=== PATIENT | female | born 2000 ===

== ENCOUNTER 2022-11-25 10:18 | Emergency (ER) | payer OTHER, SELFPAY ==
--- NOTE | ~2022-11-25 | US_ITS ---
EXAMINATION: US ABDOMEN LIMITED CLINICAL INFORMATION: Right upper quadrant pain. Evaluate for acute cholecystitis.. COMPARISON: None available. TECHNIQUE: Real-time imaging of the right upper quadrant abdominal viscera. FINDINGS: PANCREAS: Most of the pancreas obscured by overlying gas. The pancreatic duct is mildly dilated measuring 0.6 cm. GALLBLADDER: There are echogenic gallstones without wall thickening. No pericholecystic fluid collection. No tenderness with compression. COMMON BILE DUCT: Normal in caliber measuring 0.7 cm in diameter. FREE FLUID: None. US/US abdomen limited IMPRESSION: 1. Cholelithiasis without wall thickening or tenderness in right upper quadrant. 2. Mild dilatation of pancreatic duct measuring 0.6 cm.
--- NOTE | ~2022-11-25 | CT_ITS ---
EXAMINATION: CT ABDOMEN AND PELVIS WITH CONTRAST CLINICAL INFORMATION: Right lower quadrant pain. COMPARISON: None available. TECHNIQUE: Multidetector volumetric images were obtained from the superior aspect of the liver through the pubic symphysis following administration 85 mL of Omnipaque 350 intravenous contrast. Sagittal and coronal reformatted images were obtained on the technologist's workstation. Oral contrast: No This CT examination was performed using dose optimization techniques as appropriate, variously including the following: *Automated exposure control *Adjustment of mA and/or kV according to patient size (this includes techniques or standardized protocols for targeted exams where dose is matched to indication/reason for exam; i.e. extremities or head) *Use of iterative reconstruction technique DLP: 746 mGy-cm FINDINGS: LUNG BASES: The visualized lung bases are unremarkable. LIVER, GALLBLADDER, AND BILIARY TREE: No hepatic abnormality. The gallbladder shows questionable minimal dependent sludge. There is mild biliary ductal dilatation. The common bile duct measures up to 0.6 cm (image 30, series 5). Tapering at the level of the pancreatic head is seen without definitive intraluminal abnormality. PANCREAS: Unremarkable. SPLEEN: Unremarkable. ADRENAL GLANDS: Unremarkable. KIDNEYS AND URETERS: The kidneys are normal in size, shape, and attenuation. No hydronephrosis, hydroureter, or calculi seen. No perinephric stranding. BLADDER: Unremarkable. GASTROINTESTINAL TRACT: The stomach, small bowel and appendix are unremarkable. The colon and rectum are unremarkable. ABDOMINAL WALL: No significant hernia is appreciated. LYMPH NODES: No lymphadenopathy. VASCULAR: Unremarkable. PELVIC VISCERA: Mild free fluid without significant uterine or adnexal abnormality. OSSEOUS STRUCTURES: Unremarkable. CT/CT abdomen pelvis w IV con IMPRESSION: 1. Mild biliary ductal dilatation without definitive obstructing abnormality in the common bile duct. Questionable mild sludge in the gallbladder without evidence for acute cholecystitis. Right upper quadrant ultrasound is recommended for additional evaluation.
[2022-11-25 10:22] VITALS: BP 118/52; PULSE 63; RESP 18; TEMP 36.4; O2SAT 100; BMI 36.3
--- NOTE | 2022-11-25 10:34 | ED.ABDPAIN ---
HPI - Abdominal Pain General Chief Complaint: Abdominal Pain Stated Complaint: Pain From Gallstones Time Seen by Provider: 11/25/22 10:34 Source: patient Mode of arrival: ambulatory Limitations: no limitations History of Present Illness HPI narrative: 22-year-old female who presents emergency department for evaluation of right-sided abdominal pain. The patient states that after her on 05/07/2022 she developed abdominal pain was told that she has gallstones. She states that since that time she gets frequent ?gallstone pain ?every 1-2 weeks. She states that yesterday she ate steak and potatoes at around 17:00 hours for dinner. At 04:00 hours she woke up with right-sided abdominal pain. She states that was gradual in onset but has become severe. She states that the pain is a grasping like sensation and she points to her right upper quadrant when asked to localize the pain. The pain is 10/10. She had associated nausea and 2 episodes of vomiting. She states she had multiple soft stools which were dark but no blood in the stools. She had urinary frequency but no dysuria. The patient states that she was evaluated at [facility] in [facility] and is scheduled to have her gallbladder removed in 2 weeks. Patient states she went to [facility] and was evaluated by the ED triage, she had blood work but she states the wait was too long so she decided to come to this ED for evaluation since she was having increased pain and she was not medicated. Related Data Previous Rx's Medication Instructions Recorded morphine 15 mg immediate release 15 mg PO Q4-6H PRN pain #14 tabs 11/25/22 tablet ondansetron 4 mg disintegrating 4 mg PO Q6-8H PRN nausea and 11/25/22 tablet vomiting #14 tabs Allergies Allergy/AdvReac Type Severity Reaction Status Date / Time No Known Allergies Allergy Verified 11/25/22 10:25 Review of Systems Review of Systems Yes all other systems are reviewed and are negative [facility] Past Medical History [facility] Narrative: Past medical history: None. Past surgical history: None. Social history: She denies tobacco, alcohol and drug use. Social History Social History Alcohol intake: never Smoked in Last 30 Days: No Use of substances other than those prescribed or required for medical reasons: No Advance Directives: No Advance Directives Information Provided: No Patient : No Physical Exam ED Vital Signs: Vital Signs - 24 hr 11/25/22 10:22 11/25/22 11:06 11/25/22 13:35 Temperature 97.5 F 98.4 F Pulse Rate 63 56 67 Respiratory Rate 18 16 18 Blood Pressure 118/52 L 121/73 124/74 Pulse Oximetry 100 99 100 Oxygen Delivery Method Room Air Room Air Room Air BMI result Body Mass Index 36.3 Const Other: Awake, alert, female patient, she appears to be in distress secondary to her pain, she is otherwise able to answer questions without any difficulty. HENTX Head: Yes normal to inspection, Yes normocephalic and Yes atraumatic Ears: external ears normal General nose exam: Normal external nose present Face and sinus: Yes normal facial exam Mouth: Normal oral and palatal mucosa present Throat: Yes posterior oropharynx normal Eyes General: appearance normal, both eyes and all related structures Pupils: Equal, round and reactive pupils present Neck Neck: Yes normal visual inspection, Yes no lymphadenopathy, Yes trachea midline and Yes supple Chest Chest palpation & inspection: normal inspection of the chest and normal palpation of entire chest wall Resp Effort & Inspection: normal respiratory effort and able to speak in complete sentences Auscultation: clear to auscultation bilaterally Cardio Rate: regular rate Rhythm: regular rhythm Heart sounds: S1 normal heart sound present, S2 normal heart sound present and no murmurs GI Inspection: Yes normal to inspection Palpation (GI): Soft to palpation, Tenderness to palpation present (GI) in the RLQ (Moderate) and in the RUQ (Moderate to severe) and no guarding Auscultation: normal bowel sounds General: Yes no CVA tenderness Back/Spine/Pelvis Back: no CVA tenderness Skin General skin exam: no rashes or lesions noted Neuro Cranial nerves: Yes CN's II-XII intact bilaterally and Yes Equal, round and reactive pupils present Cognition (Neuro): normal cognition Motor exam (neuro): 5/5 motor strength present throughout Extrem General: Yes normal to inspection Psych Appearance: grossly normal Speech and movement: Normal speech and movement present Affect: normal affect Attitude: cooperative Medical Decision Making Medical Decision Making MDM Narrative: 22-year-old female who presents emergency department for evaluation of right-sided abdominal pain which started gradually at 04:00 hours, got progressively worse and is now 10/10 and. She describes the pain is a grabbing sensation points to her right upper quadrant. Patient has known gallstones and states she has elective surgery 2 weeks from now at [facility] to have her gallbladder removed. On presentation, the patient does appear to be uncomfortable secondary to her pain. Vital signs were normal. Examination revealed moderate to severe right upper quadrant tenderness and moderate right lower quadrant tenderness. I ordered a laboratory evaluation to include CBC, CMP, quantitative beta-hCG, lactic acid, lipase, PT/INR, PTT and urinalysis. Given both her right upper and right lower quadrant tenderness, I ordered a CT scan of the abdomen pelvis with IV contrast to help delineate the cause for pain. Patient was ordered to get normal saline x1 L. her pain and nausea was treated with Toradol 15 mg IV and Zofran 4 mg IV. 1253: My interpretation patient's laboratory evaluation is as follows: CBC was normal. CMP was normal. Lipase was not elevated. CT scan of the abdomen pelvis with IV contrast did not reveal any inflammatory changes or gallbladder wall thickening but the patient does have gallbladder sludge and mild biliary ductal dilatation. Patient initially got improvement of her pain with the Toradol but the pain is not returned. Patient still has significant right upper quadrant tenderness. I ordered morphine 4 mg IV and Zofran 4 mg IV. I will obtain a right upper quadrant ultrasound to further evaluate the patient for possible cholecystitis. 1438: The patient is feeling better after receiving IV morphine. Patient still has tenderness with palpation of her right upper quadrant. Ultrasound did reveal cholelithiasis but no evidence for cholecystitis. Patient's pain is consistent with biliary colic secondary to gallstones I did discuss this with her. The patient has a surgery 2 weeks and I told her she should not take aspirin or ibuprofen or other anti-inflammatory medications. She was advised to take Tylenol for pain and for pain not relieved by Tylenol she was prescribed morphine. She is also prescribe Zofran for her nausea. She was advised to stay on a bland diet and to follow-up with her surgeon to discuss moving up her surgery. Differential Diagnosis Differential diagnosis includes was not limited to acute cholecystitis, biliary colic, pancreatitis, appendicitis, diverticulitis, Admission/Observation Consideration of admission/observation: Escalation of care including admission/observation considered Lab Data [facility] Lab Attestation statement: I reviewed the patient's lab results. See [facility] 11/25/22 11:02 11/25/22 11:02 Labs: Lab Results 11/25/22 11/25/22 11/25/22 Range/Units 11:02 11:02 11:02 WBC 9.1 (4.8-10.8) X10*3/uL RBC 4.42 (4.20-5.50) X10*6/uL Hgb 12.4 (12.0-16.0) g/dl Hct 38.5 (37.0-47.0) % MCV 87.1 (80.0-98.0) fL MCH 28.1 (27.0-33.0) pg MCHC 32.2 (31.0-35.0) g/dl RDW 13.8 (11.0-16.0) % Plt Count 381 (160-400) X10*3/uL MPV 9.3 L (9.4-12.3) fL Immature Gran % (Auto) 0.2 (0.0-0.4) % Neut % (Auto) 74.4 H (45-73) % Lymph % (Auto) 19.6 L (20-40) % Garza % (Auto) 5.3 (2-11) % Eos % (Auto) 0.3 (0-4) % Baso % (Auto) 0.2 (0-2) % Lymph # (Auto) 1.8 (1.2-4.9) X10*3/uL Garza # (Auto) 0.5 (0.1-1.2) X10*3/uL Eos # (Auto) 0.0 (0.0-0.4) X10*3/uL Baso # (Auto) 0.0 (0.0-0.2) X10*3/uL Abs Immat Gran (auto) 0.02 (0.00-0.03) X10*3/uL Absolute Neuts (auto) 6.7 (2.0-8.3) x10*3/uL Absolute Nucleated RBC 0.000 (0.0-0.012) X10*3/uL Nucleated RBC % (auto) 0.0 (0.0-0.2) /100WBC PT 11.0 (10.0-13.1) SEC INR 1.0 (0.9-1.1) APTT 29.2 (26.0-36.4) SEC Sodium 140 (135-145) mmol/L Potassium 3.9 (3.3-5.1) mmol/L Chloride 108 (96-108) mmol/L Carbon Dioxide 22 (22-29) mmol/L Anion Gap 14 (12-20) BUN 7 L (9-16) mg/dL Creatinine 0.77 (0.5-1.4) mg/dL Estim Creat Clear Calc 135.7 Estimated GFR > 60 Random Glucose 101 (60-115) mg/dL Lactic Acid (0.5-2.0) mmol/L Calcium 9.1 (8.4-10.2) mg/dL Total Bilirubin 0.5 (0.0-1.0) mg/dL AST 16 (5-31) U/L ALT 12 (0-31) U/L Alkaline Phosphatase 62 (39-117) U/L Total Protein 6.8 (6.5-8.0) g/dL Albumin 4.2 (3.5-5.0) g/dL Lipase 19 (8-78) U/L Beta HCG, Quant mIU/mL Urine Color Urine Appearance Urine pH (5.0-9.0) Ur Specific Lutts (1.005-1.025) Urine Protein (Neg-Trace) mg/dL Urine Glucose (UA) (Negative) mg/dL Urine Ketones (Negative) mg/dL Urine Blood (Negative) Urine Nitrite (Negative) Ur Leukocyte Esterase (Negative) Urine RBC (0-2) /HPF Urine WBC (0-5) /HPF Ur Squamous Epith Cells (0-2) /HPF Urine Bacteria (None Seen) Hyaline Casts (0-2) /LPF 11/25/22 11/25/22 11/25/22 Range/Units 11:02 11:02 11:16 WBC (4.8-10.8) X10*3/uL RBC (4.20-5.50) X10*6/uL Hgb (12.0-16.0) g/dl Hct (37.0-47.0) % MCV (80.0-98.0) fL MCH (27.0-33.0) pg MCHC (31.0-35.0) g/dl RDW (11.0-16.0) % Plt Count (160-400) X10*3/uL MPV (9.4-12.3) fL Immature Gran % (Auto) (0.0-0.4) % Neut % (Auto) (45-73) % Lymph % (Auto) (20-40) % Garza % (Auto) (2-11) % Eos % (Auto) (0-4) % Baso % (Auto) (0-2) % Lymph # (Auto) (1.2-4.9) X10*3/uL Garza # (Auto) (0.1-1.2) X10*3/uL Eos # (Auto) (0.0-0.4) X10*3/uL Baso # (Auto) (0.0-0.2) X10*3/uL Abs Immat Gran (auto) (0.00-0.03) X10*3/uL Absolute Neuts (auto) (2.0-8.3) x10*3/uL Absolute Nucleated RBC (0.0-0.012) X10*3/uL Nucleated RBC % (auto) (0.0-0.2) /100WBC PT (10.0-13.1) SEC INR (0.9-1.1) APTT (26.0-36.4) SEC Sodium (135-145) mmol/L Potassium (3.3-5.1) mmol/L Chloride (96-108) mmol/L Carbon Dioxide (22-29) mmol/L Anion Gap (12-20) BUN (9-16) mg/dL Creatinine (0.5-1.4) mg/dL Estim Creat Clear Calc Estimated GFR Random Glucose (60-115) mg/dL Lactic Acid 1.0 (0.5-2.0) mmol/L Calcium (8.4-10.2) mg/dL Total Bilirubin (0.0-1.0) mg/dL AST (5-31) U/L ALT (0-31) U/L Alkaline Phosphatase (39-117) U/L Total Protein (6.5-8.0) g/dL Albumin (3.5-5.0) g/dL Lipase (8-78) U/L Beta HCG, Quant < 2 mIU/mL Urine Color Yellow Urine Appearance Clear Urine pH 8.0 (5.0-9.0) Ur Specific Lutts 1.020 (1.005-1.025) Urine Protein Negative (Neg-Trace) mg/dL Urine Glucose (UA) Negative (Negative) mg/dL Urine Ketones Negative (Negative) mg/dL Urine Blood Negative (Negative) Urine Nitrite Negative (Negative) Ur Leukocyte Esterase Moderate (2+) H (Negative) Urine RBC 0-2 (0-2) /HPF Urine WBC 11-20 H (0-5) /HPF Ur Squamous Epith Cells 6-10 (0-2) /HPF Urine Bacteria None Seen (None Seen) Hyaline Casts 0-2 (0-2) /LPF Radiology Impression Discussion of test interpretation with radiology: I have reviewed the radiologist's reading. Radiologist Impression: CT abdomen pelvis w IV con IMPRESSION: 1. Mild biliary ductal dilatation without definitive obstructing abnormality in the common bile duct. Questionable mild sludge in the gallbladder without evidence for acute cholecystitis. Right upper quadrant ultrasound is recommended for additional evaluation. Dictated By:Darrel Church MD US abdomen limited IMPRESSION: 1. Cholelithiasis without wall thickening or tenderness in right upper quadrant. 2. Mild dilatation of pancreatic duct measuring 0.6 cm. Dictated By:Andrés Easley MD Medications Administered Discontinued Medications Generic Name Dose Route Start Last Admin Trade Name Freq PRN Reason Stop Dose Admin Sodium Chloride 1,000 mls @ 999 mls/hr 11/25/22 10:44 11/25/22 12:35 Ns IV 11/25/22 11:44 Infused .Q1H1M STA Infusion Iohexol 85 ml 11/25/22 11:50 11/25/22 11:51 Iohexol 350 Mg/Ml 100 Ml Infus..Btl IV 11/25/22 11:51 85 ml ONCE ONE Administration Ketorolac Tromethamine 15 mg 11/25/22 10:44 11/25/22 11:18 Ketorolac Tromethamine 15 Mg/Ml Vial IVPUSH 11/25/22 10:45 15 mg ONCE STA Administration Morphine Sulfate 4 mg 11/25/22 12:51 11/25/22 13:32 Morphine Sulfate 4 Mg/Ml Cartridge IVPUSH 11/25/22 12:52 4 mg ONCE STA Administration Protocol Ondansetron HCl 4 mg 11/25/22 10:44 11/25/22 11:18 Ondansetron Hcl 4 Mg/2 Ml Vial IVPUSH 11/25/22 10:45 4 mg ONCE ONE Administration Ondansetron HCl 4 mg 11/25/22 12:51 11/25/22 13:32 Ondansetron Hcl 4 Mg/2 Ml Vial IVPUSH 11/25/22 12:52 4 mg ONCE ONE Administration Discharge Plan Discharge Clinical Impression: Biliary colic Gallstone Qualifiers: Cholecystitis presence: without cholecystitis Patient Disposition: Home, Self-Care Instructions: Biliary Colic (ED), Low Fat Diet (ED) Additional Instructions: Your blood work was normal. The CT scan of your abdomen pelvis with IV contrast did not reveal any thickening of your gallbladder wall or inflammation of your gallbladder The ultrasound of your gallbladder revealed gallstones but no thickening of the gallbladder wall. These findings suggest that you have no inflammation of your gallbladder but your pain is consistent with your gallstones. You need to stay on a low-fat diet and avoid any fatty foods, that causes your gallbladder to squeeze and will cause you to have increased pain. Do not take any aspirin or anti-inflammatory medications since she was scheduled for surgery in 2 weeks. Take Tylenol (acetaminophen) 2 pills every 6 hours as needed for pain. For pain not relieved by ibuprofen or Tylenol take morphine 15 mg pills, 1 pill every 4 hours as needed for pain. This medication will make you sleepy, do not drive or work while taking this medication. Morphine is a narcotic medication and can be addicting. If you are concerned about addiction you can ask the pharmacist for less pills or do not get this prescription filled. Take Zofran ODT 4 mg pills, 1 pill dissolved in your mouth every 8 hours as needed for nausea and vomiting. Follow-up with your doctor in 2 days. Please return to the emergency department if your symptoms get worse or if you develop any symptoms that are concerning to you. Prescriptions: New morphine 15 mg tablet 15 mg PO Q4-6H PRN (Reason: pain) Qty: 14 0RF Rx Instructions: Patient may request partial fill; Partial Fill upon patient request. ondansetron 4 mg tablet,disintegrating 4 mg PO Q6-8H PRN (Reason: nausea and vomiting) Qty: 14 0RF
--- NOTE | 2022-11-25 11:03 | PC.NURSE ---
Labs collected and sent as ordered. Pt. on monitor technician at this time.
[2022-11-25 11:06] VITALS: BP 121/73; PULSE 56; RESP 16; TEMP 36.9; O2SAT 99
[2022-11-25 11:12] LABS: MANUAL DIFF FLAG NO
[2022-11-25 11:15] LABS: Basophils Percent Auto 0.2 % (0-2); Eosinophils Percent Auto 0.3 % (0-4); Hematocrit 38.5 % (37.0-47.0); Hemoglobin 12.4 g/dl (12.0-16.0); Imm Gran Abs Auto 0.02 X10*3/uL (0.00-0.03); Imm Gran Pct Auto 0.2 % (0.0-0.4); Lymphocytes Absolute Auto 1.8 X10*3/uL (1.2-4.9); Lymphocytes Percent Auto 19.6 % (20-40); Mean Corpuscular HGB Conc 32.2 g/dl (31.0-35.0); Mean Corpuscular Hemoglobin 28.1 pg (27.0-33.0); Mean Corpuscular Volume 87.1 fL (80.0-98.0); Mean Platelet Volume 9.3 fL (9.4-12.3); Monocytes Absolute Auto 0.5 X10*3/uL (0.1-1.2); Monocytes Percent Auto 5.3 % (2-11); Neutrophils Absolute Auto 6.7 x10*3/uL (2.0-8.3); Neutrophils Percent Auto 74.4 % (45-73); Platelet Count 381 X10*3/uL (160-400); Red Blood Count 4.42 X10*6/uL (4.20-5.50); Red Cell Distribution Width 13.8 % (11.0-16.0); White Blood Count 9.1 X10*3/uL (4.8-10.8)
[2022-11-25] MEDS: Ketorolac Tromethamine 15 MG/ML VIAL IVPUSH (11:18)
[2022-11-25] MEDS: 0.9 % Sodium Chloride 1,000 ML 999 ML IV (11:18)
[2022-11-25] MEDS: ondansetron HCL 4 MG/2 ML VIAL IVPUSH ×2 (11:18→13:32)
[2022-11-25 11:22] LABS: Partial Thromboplastin Time 29.2 SEC (26.0-36.4)
[2022-11-25 11:28] LABS: Alanine Aminotransferase 12 U/L (0-31); Albumin Level 4.2 g/dL (3.5-5.0); Alkaline Phosphatase 62 U/L (39-117); Anion Gap 14 (12-20); Aspartate Amino Transferase 16 U/L (5-31); Bilirubin Total 0.5 mg/dL (0.0-1.0); Blood Urea Nitrogen 7 mg/dL (9-16); Calcium 9.1 mg/dL (8.4-10.2); Carbon Dioxide 22 mmol/L (22-29); Chloride 108 mmol/L (96-108); Creatinine Clr Calc Pharmacy 135.7; Estimated Glomerular Filt Rate > 60; Glucose Random 101 mg/dL (60-115); Lipase 19 U/L (8-78); Potassium 3.9 mmol/L (3.3-5.1); Sodium 140 mmol/L (135-145); Total Protein 6.8 g/dL (6.5-8.0)
[2022-11-25 11:32] LABS: Appearance Urine Clear; Color Urine Yellow; Glucose Urine UA Negative (Negative); Leukocyte Esterase Urine Moderate (2+) (Negative); Nitrite Urine Negative (Negative); UMIC TRIGGER UACC YES; Urine Blood Negative (Negative); Urine Ketones Negative (Negative); Urine Protein Negative (Neg-Trace)
[2022-11-25 11:36] LABS: HCG Quantitative < 2 mIU/mL
[2022-11-25 11:36] LABS: Bacteria Urine None Seen (None Seen); Hyaline Casts Urine 0-2 /LPF (0-2); RBC Urine 0-2 /HPF (0-2); UACC Culture Trigger YES
[2022-11-25] MEDS: iohexoL 350 MG/ML 100 ML INFUS..BTL 85 ML IV (11:51)
[2022-11-25] MEDS: Morphine Sulfate 4 MG/ML CARTRIDGE IVPUSH (13:32)
[2022-11-25 13:35] VITALS: BP 124/74; PULSE 67; RESP 18; O2SAT 100
== END 2022-11-25 15:15 | disposition home or self-care (01) ==
PROVIDERS: Emergency Provider Emergency Medicine Emergency Medical Services
DX: K80.50 Calculus of bile duct without cholangitis or cholecystitis without obstruction (principal); Z79.899 Other long term (current) drug therapy
CPT/HCPCS: 36415; 74177; 76705; 80053; 81001; 83605; 83690; 84702; 85025; 85610; 85730; 87086; 96361; 96374; 96375; 96376; 99284; J1885; J2270; J2405; Q9967